=== PATIENT | female | born 1955 | race Caucasian/White ===

== ENCOUNTER → 2016-07-04 | Outpatient (CLI) | payer OTHER ==
[~2016-07-04] MED LIST: CYCL5TAB PO; ESCI10TA PO; GABA100C8 PO; LANS30CA16 PO; LEVO100T5 PO; METO-95 PO; MULT-709 PO; OXYB15TA PO; RIVA20TA PO; [UNRECOGNIZED DRUG - CODE] PO
== END | disposition home or self-care (01) ==
LOC: CFH 10:33
PROVIDERS: ATTEND Internal Medicine Cardiovascular Disease
DX: I34.0 Nonrheumatic mitral (valve) insufficiency (principal); I07.1 Rheumatic tricuspid insufficiency; I37.1 Nonrheumatic pulmonary valve insufficiency; I48.92 Unspecified atrial flutter; I10 Essential (primary) hypertension
CPT/HCPCS: 93306

== ENCOUNTER → 2017-07-15 | Outpatient (CLI) | payer OTHER ==
[~2017-07-15] MED LIST changes: +GABA-826 PO; -GABA100C8 PO; -LANS30CA16 PO; +LANS30CA60 PO
== END | disposition home or self-care (01) ==
LOC: CVU 06:54
PROVIDERS: ATTEND Internal Medicine Cardiovascular Disease
DX: I08.1 Rheumatic disorders of both mitral and tricuspid valves (principal); I48.92 Unspecified atrial flutter; E11.9 Type 2 diabetes mellitus without complications
CPT/HCPCS: 0399T; 93306

== ENCOUNTER → 2017-09-25 | Outpatient (CLI) | payer OTHER ==
[~2017-09-25] MED LIST changes: +REGADENOSON 0.4 MG/5 ML SYRINGE ONE
== END | disposition home or self-care (01) ==
LOC: RAD 10:31
PROVIDERS: ATTEND Internal Medicine Cardiovascular Disease
DX: I10 Essential (primary) hypertension (principal); I42.9 Cardiomyopathy, unspecified; E11.9 Type 2 diabetes mellitus without complications; I08.1 Rheumatic disorders of both mitral and tricuspid valves
CPT/HCPCS: 78452; 93017; A9502; J2785

== ENCOUNTER 2018-06-18 05:17 | Day surgery (SDC) | payer MEDICARE, OTHER ==
[~2018-06-18] VITALS: Ht 179.1 cm; Wt 105.0 kg
[~2018-06-18 05:17] MED LIST changes: +ASPI-496 PO; +ATOR20TA37 PO; +CYAN10005 PO; +FLUT9.9S NS; +FURO20TA3 PO; +IBUP-1223 PO; +LEVO150T5 PO; +METF500T17 PO; -REGADENOSON 0.4 MG/5 ML SYRINGE ONE; +[UNRECOGNIZED DRUG - OTHER] PO
[2018-06-18 06:04] VITALS: BP 117/79
[2018-06-18] MEDS ORDERED: LACTATED RINGERS 1,000 ML IV SCH (06:06)
[2018-06-18] MEDS ORDERED: BUPIVACAINE/PF 0.5% ONE (06:44)
[2018-06-18] MEDS ORDERED: LIDOCAINE 1%, 20ML ONE (06:44)
[2018-06-18] MEDS ORDERED: MIDAZOLAM 1 MG/ML, 2ML ONE (06:47)
[2018-06-18] MEDS ORDERED: FENTANYL PF 100 MCG/2ML ONE (06:47)
[2018-06-18] MEDS ORDERED: GABAPENTIN 300 MG CAPSULE PO ONE (07:00)
[2018-06-18] MEDS ORDERED: ACETAMINOPHEN 500 MG TABLET PO ONE (07:00)
[2018-06-18] MEDS ORDERED: DEXAMETHASONE 4 MG/ML, 1ML ONE (07:27)
[2018-06-18] MEDS ORDERED: ONDANSETRON 2MG/ML, 2ML ONE (07:27)
[2018-06-18] MEDS ORDERED: CEFAZOLIN 1,000 MG ONE (07:27)
[2018-06-18] MEDS ORDERED: PROPOFOL 10 MG/ML, 20ML ONE (07:27)
[2018-06-18] MEDS ORDERED: OXYcodone 5 MG/5 ML ORAL.SOL UDC PO PRN (07:30)
[2018-06-18] MEDS ORDERED: FENTANYL PF 100 MCG/2ML IV PRN (07:30)
[2018-06-18] MEDS ORDERED: SCOPOLAMINE PATCH, 1.5MG PATCH.TD72 TD PRN (07:30)
[2018-06-18] MEDS ORDERED: MEPERIDINE/PF 25MG/0.5ML IVPush PRN (07:30)
[2018-06-18] MEDS ORDERED: HYDROmorphone 2 MG/ML, 1ML IVPush PRN (07:30)
[2018-06-18] MEDS ORDERED: PROMETHAZINE 25 MG/ML, 1ML IV PRN (07:30)
[2018-06-18] MEDS ORDERED: MIDAZOLAM 1 MG/ML, 2ML IV PRN (07:30)
[2018-06-18] MEDS ORDERED: ONDANSETRON 2MG/ML, 2ML IV PRN (07:30)
[2018-06-18] MEDS ORDERED: OXYcodone 5 MG/5 ML ORAL.SOL UDC ONE (07:55)
== END 2018-06-18 09:40 | disposition home or self-care (01) ==
LOC: OUT 05:17
PROVIDERS: ATTEND Orthopaedic Surgery
DX: M20.5X2 Other deformities of toe(s) (acquired), left foot (principal); I10 Essential (primary) hypertension; E78.5 Hyperlipidemia, unspecified; K21.9 Gastro-esophageal reflux disease without esophagitis; E11.9 Type 2 diabetes mellitus without complications; G47.33 Obstructive sleep apnea (adult) (pediatric); Z79.4 Long term (current) use of insulin; Z79.899 Other long term (current) drug therapy
CPT/HCPCS: 28010; 82962; J0690; J1100; J2250; J2405; J2704; J3010; J3490; J7120

== ENCOUNTER 2018-10-04 12:35 | Outpatient (CLI) | payer MEDICARE, OTHER | END 2018-10-04 23:59 | disposition home or self-care (01) | LOC: CFH 12:35 | PROVIDERS: ATTEND Internal Medicine Cardiovascular Disease | DX: I08.1 Rheumatic disorders of both mitral and tricuspid valves (principal); E78.5 Hyperlipidemia, unspecified; I10 Essential (primary) hypertension | CPT/HCPCS: 0399T; 93306 ==

== ENCOUNTER → 2019-05-10 | Outpatient (CLI) | payer MEDICARE, OTHER ==
[~2019-05-10] MED LIST changes: +CYAN-27 PO; -CYAN10005 PO; -OXYB15TA PO; +OXYB15TA18 PO
== END | disposition home or self-care (01) ==
LOC: RAD 16:51
PROVIDERS: ATTEND Nurse Practitioner
DX: M72.2 Plantar fascial fibromatosis (principal); M79.89 Other specified soft tissue disorders

== ENCOUNTER → 2019-11-09 | Outpatient (CLI) | payer MEDICARE, OTHER | END | disposition home or self-care (01) | LOC: CVU 08:33 | PROVIDERS: ATTEND Internal Medicine Cardiovascular Disease | DX: I08.3 Combined rheumatic disorders of mitral, aortic and tricuspid valves (principal); I77.810 Thoracic aortic ectasia | CPT/HCPCS: 93306 ==

== ENCOUNTER 2020-08-16 10:04 | Outpatient (CLI) | payer MEDICARE, OTHER ==
[~2020-08-16 10:04] MED LIST changes: -ESCI10TA PO; +ESCI10TA97 PO
== END 2020-08-16 23:59 | disposition home or self-care (01) ==
LOC: CVU 10:04
PROVIDERS: ATTEND Internal Medicine Cardiovascular Disease
DX: I34.0 Nonrheumatic mitral (valve) insufficiency (principal); I10 Essential (primary) hypertension; E11.9 Type 2 diabetes mellitus without complications; I48.91 Unspecified atrial fibrillation; E78.5 Hyperlipidemia, unspecified; I42.9 Cardiomyopathy, unspecified
CPT/HCPCS: 93306; 93356